=== PATIENT | male | born 1965 | race African-American/Black ===

== ENCOUNTER 2016-12-10 12:31 | Emergency (ER) | payer MEDICAID, MEDICARE, OTHER ==
[2016-12-10] MEDS ORDERED: ALBUTEROL SULFATE 0.083% NEB 2.5 MG/3 ML AMPUL NEB ONE (12:45)
[2016-12-10 13:41] LABS: ABSOLUTE EOSINOPHILS # (AUTO) 0.1 10^3/uL (0.0-0.6); ABSOLUTE LYMPHOCYTES (AUTO) 1.8 10^3/uL (0.5-4.7); ABSOLUTE MONOCYTES (AUTO) 0.8 10^3/uL (0.1-1.4); ABSOLUTE NEUT (AUTO) 5.5 10^3/uL (1.7-8.2); BASOPHILS % (AUTO) 0.2 % (0-2); EOSINOPHILS % (AUTO) 1.1 % (0-6); HEMATOCRIT 45.7 % (37.9-51.0); HEMOGLOBIN 15.7 g/dL (13.5-17.0); HGB HCT DIFFERENCE 1.4; LYMPHOCYTES % (AUTO) 21.5 % (13-45); MEAN CORPUSCULAR HGB CONC 34.5 g/dL (32.0-36.0); MEAN CORPUSCULAR VOLUME 90 fl (80-97); MONOCYTES % (AUTO) 9.9 % (3-13); RED BLOOD COUNT 5.09 10^6/uL (4.35-5.55); RED CELL DISTRIBUTION WIDTH 13.9 % (11.5-14.0); SEGMENTED NEUTROPHILS % (AUTO) 67.3 % (42-78); WHITE BLOOD COUNT 8.2 10^3/uL (4.0-10.5)
--- NOTE | 2016-12-10 13:57 | RADIOLOGY REPORT (SQ) ---
EXAM DESCRIPTION: CHEST SINGLE VIEW COMPLETED DATE/TIME: 12/10/2016 1:47 pm REASON FOR STUDY: sob COMPARISON: 11/26/2014 EXAM PARAMETERS: NUMBER OF VIEWS: One view. TECHNIQUE: Single frontal radiographic view of the chest acquired. RADIATION DOSE: NA LIMITATIONS: None. FINDINGS: LUNGS AND PLEURA: No opacities, masses or pneumothorax. No pleural effusion. MEDIASTINUM AND HILAR STRUCTURES: No masses. Contour normal. HEART AND VASCULAR STRUCTURES: Heart normal in size. Normal vasculature. BONES: No acute findings. HARDWARE: None in the chest. OTHER: No other significant finding. IMPRESSION: NO ACUTE RADIOGRAPHIC FINDING IN THE CHEST. TECHNICAL DOCUMENTATION: JOB ID: [id number]
[2016-12-10 14:02] LABS: ALANINE AMINOTRANSFERASE 46 U/L (21-72); ALBUMIN 4.5 g/dL (3.5-5.0); ALKALINE PHOSPHATASE 58 U/L (38-126); ANION GAP 13 (5-19); ASPARTATE AMINO TRANSFERASE 31 U/L (17-59); BILIRUBIN,DIRECT 0.4 mg/dL (0.0-0.4); BILIRUBIN,TOTAL 0.5 mg/dL (0.2-1.3); BLOOD UREA NITROGEN 13 mg/dL (7-20); CALCIUM 9.6 mg/dL (8.4-10.2); CARBON DIOXIDE 30 mmol/L (22-30); CHLORIDE 102 mmol/L (98-107); CREATINE KINASE 720 U/L (55-170); GLUCOSE 106 mg/dL (75-110); SODIUM 144.5 mmol/L (137-145); TOTAL PROTEIN 7.7 g/dL (6.3-8.2)
[2016-12-10 14:31] LABS: TROPONIN I < 0.012 ng/mL
--- NOTE | 2016-12-10 15:43 | RADIOLOGY REPORT (SQ) ---
EXAM DESCRIPTION: KUB/ABDOMEN (SINGLE VIEW) COMPLETED DATE/TIME: 12/10/2016 3:33 pm REASON FOR STUDY: feeling of something pushing on his stomach COMPARISON: None. NUMBER OF VIEWS: One view. TECHNIQUE: Supine radiographic image of the abdomen acquired. LIMITATIONS: None. FINDINGS: BOWEL GAS PATTERN: Normal bowel gas pattern. No dilated loops. CALCIFICATIONS: No suspicious calcifications. SOFT TISSUES: No gross mass or suggestion of organomegaly. HARDWARE: None in the abdomen. BONES: No acute fracture. No worrisome bone lesions. OTHER: No other significant finding. IMPRESSION: NO RADIOGRAPHIC EVIDENCE FOR ACUTE ABDOMINAL DISEASE. TECHNICAL DOCUMENTATION: JOB ID: [id number] [employer]- All Rights Reserved
--- NOTE | 2016-12-10 15:51 | ER Document Report ---
ED Respiratory Problem - General Chief Complaint: Respiratory Distress Stated Complaint: RESPIRTORY DISTRESS Time Seen by Provider: 12/10/16 12:41 Mode of Arrival: Medic Information source: Patient Notes: Pt is a 51 year old male with ALS who presents to the ER today for feeling short of breath, and states it feels like "somebody's holding their hand down on my stomach and it's keeping me from getting a good breath." pt is on treatment for ALS by his primary doctor Dr. Ley. Pt states his shortness of breath started last night. He also admits that he's been on antibiotics recently , amoxicillin for a sinus infection. He admits to coughing. He denies fever/ chills. He denies copd/asthma, wheezing. he states the sinus pressure and other symptoms have improved. TRAVEL OUTSIDE OF THE [place] IN LAST 30 DAYS: No - Related Data Allergies/Adverse Reactions: No Known Allergies Allergy (Unverified 12/10/16 14:45) Past Medical History - General Information source: Patient - Social History Smoking Status: Current Every Day Smoker Frequency of alcohol use: None Drug Abuse: None Family History: Reviewed & Not Pertinent Past Surgical History: Reports: Hx Orthopedic Surgery - left hand Review of Systems - Review of Systems Constitutional: No symptoms reported EENT: See HPI Cardiovascular: No symptoms reported Respiratory: See HPI Gastrointestinal: No symptoms reported Genitourinary: No symptoms reported Male Genitourinary: No symptoms reported Musculoskeletal: See HPI Skin: No symptoms reported Hematologic/Lymphatic: No symptoms reported Neurological/Psychological: No symptoms reported Physical Exam - Vital signs Vitals: Resp Pulse Ox 20 97 12/10/16 12:52 12/10/16 12:52 - Notes Notes: PHYSICAL EXAMINATION: GENERAL: in no acute distress. HEAD: Atraumatic, normocephalic. EYES: Pupils equal round and reactive to light, extraocular movements intact, sclera anicteric, conjunctiva are normal. ENT: ear canals without erythema or foreign body, TMs pearly james with good bony landmarks, nares patent, oropharynx clear without exudates. Moist mucous membranes. airway patent NECK: Normal range of motion, supple without lymphadenopathy LUNGS: CTAB and equal. No wheezes rales or rhonchi. HEART: Regular rate and rhythm without murmurs ABDOMEN: Soft, no tenderness. No guarding, no rebound EXTREMITIES: does not move extremities, confined to bed, atrophy of lower extremities, no pitting edema. No cyanosis. NEUROLOGICAL: Cranial nerves grossly intact. see extremities above PSYCH: Normal mood, normal affect. SKIN: Warm, Dry, normal turgor, no rashes or lesions noted Course - Re-evaluation Re-evalutation: 12/10/16 15:54 Lab work is unremarkable today including normal cardiac enzymes, EKG reveals a normal sinus rhythm without ischemia or abnormality. Chest x-ray reveals no abnormality an abdominal x-ray reveals normal bowel pattern. Patient feels better after breathing treatment here. I will send him home with albuterol inhaler. I do believe that this is likely just the progression of his disease, however his vital signs are all stable here, he came in and 100% on room air, respirations 20/min, has not needed any oxygen although we did placed on him for his own comfort. He states the oxygen did not actually help him at all. - Vital Signs Vital signs: Temp Pulse Resp BP Pulse Ox 98.0 F 22 H 122/92 H 99 12/10/16 12:58 12/10/16 16:01 12/10/16 16:01 12/10/16 16:01 - Laboratory Result Diagrams: 12/10/16 13:15 12/10/16 13:15 Laboratory results interpreted by me: 12/10/16 12/10/16 13:15 13:15 Creatinine 0.50 L Creatine Kinase 720 H CK-MB (CK-2) 14.80 H Discharge - Discharge Clinical Impression: ALS (amyotrophic lateral sclerosis), Shortness of breath Condition: Stable Disposition: HOME, SELF-CARE Additional Instructions: Return immediately for any new or worsening symptoms. Follow up with primary care provider, call tomorrow to make followup appointment. Referrals: OUSMANE LEY MD [Primary Care Provider] - Follow up as needed
[2016-12-10] MEDS ORDERED: ALBUTEROL SULFATE HFA (90 MCG/PUFF) 8 GM MDI (1 MDI/ER DISP) IH PRN (15:57)
[2016-12-10 16:25] VITALS: BP 122/92
== END 2016-12-10 16:49 | disposition home or self-care (01) ==
LOC: ER 12:31
DX: G12.21 Amyotrophic lateral sclerosis (principal); R06.02 Shortness of breath; F17.200 Nicotine dependence, unspecified, uncomplicated
CPT/HCPCS: 94640; 99285; 36415; 82553; 82550; 85025; 80053; 84484; 87804; 71010; 74000; A9270; J3490

== ENCOUNTER 2017-01-15 12:16 | Emergency (ER) | payer MEDICARE ==
[2017-01-15] MEDS ORDERED: IPRATROPIUM/ALBUTEROL 0.5-2.5 MG/3 ML AMPUL NEB ONE (12:50)
--- NOTE | 2017-01-15 13:41 | RADIOLOGY REPORT (SQ) ---
EXAM DESCRIPTION: CHEST PA/LAT COMPLETED DATE/TIME: 01/15/2017 1:26 pm REASON FOR STUDY: sob COMPARISON: 11/26/2014 EXAM PARAMETERS: NUMBER OF VIEWS: two views TECHNIQUE: Digital Frontal and Lateral radiographic views of the chest acquired. RADIATION DOSE: NA LIMITATIONS: none FINDINGS: LUNGS AND PLEURA: No opacities, masses or pneumothorax. No pleural effusion. MEDIASTINUM AND HILAR STRUCTURES: No masses or contour abnormalities. HEART AND VASCULAR STRUCTURES: Heart normal size. No evidence for failure. BONES: No acute findings. HARDWARE: None in the chest. OTHER: No other significant finding. IMPRESSION: NO SIGNIFICANT RADIOGRAPHIC FINDING IN THE CHEST. TECHNICAL DOCUMENTATION: JOB ID: [id number] [employer]- All Rights Reserved
[2017-01-15] MEDS ORDERED: ALBUTEROL SULFATE HFA (90 MCG/PUFF) 8 GM MDI (1 MDI/ER DISP) IH ONE (14:53)
[2017-01-15] MEDS ORDERED: DEXAMETHASONE 4 MG TABLET PO ONE (14:55)
--- NOTE | 2017-01-15 14:56 | ER Document Report ---
ED General - General Chief Complaint: Shortness Of Breath Stated Complaint: DIFFICULTY BREATHING Time Seen by Provider: 01/15/17 12:26 TRAVEL OUTSIDE OF THE [place] IN LAST 30 DAYS: No - Related Data Allergies/Adverse Reactions: No Known Allergies Allergy (Unverified 12/10/16 14:45) Past Medical History - Social History Smoking Status: Former Smoker Family History: Reviewed & Not Pertinent Patient has suicidal ideation: No Patient has homicidal ideation: No Renal/ Medical History: Denies: Hx Peritoneal Dialysis Past Surgical History: Reports: Hx Orthopedic Surgery - left hand Physical Exam - Vital signs Vitals: Temp Pulse Resp BP Pulse Ox 98.5 F 106 H 18 181/111 H 98 01/15/17 12:24 01/15/17 12:24 01/15/17 12:24 01/15/17 12:24 01/15/17 12:24 Course - Vital Signs Vital signs: Temp Pulse Resp BP Pulse Ox 98.5 F 106 H 18 181/111 H 98 01/15/17 12:24 01/15/17 12:24 01/15/17 12:24 01/15/17 12:24 01/15/17 12:24 Discharge - Discharge Clinical Impression: Postnasal drip Reactive airway disease Qualifiers: Asthma severity: mild Asthma complication type: uncomplicated Instructions: Reactive Airway Disease ([facility]) Additional Instructions: I do believe you have reactive airway disease causing her shortness of breath due to your underlying postnasal drip. We will treat the postnasal drip with antihistamine. He may also treat herself with the albuterol inhaler given here in the ER 2 puffs every 4 hours for shortness of breath. I would recommend also following up with your primary care physician for the mentioning of your urinary frequency. Return to the ER symptoms worsen. Prescriptions: Loratadine [Claritin] 10 mg PO DAILY #30 capsule Forms: Return to Work
[2017-01-15 15:22] VITALS: BP 122/87
== END 2017-01-15 15:22 | disposition home or self-care (01) ==
LOC: ER 12:16
DX: R09.82 Postnasal drip (principal); J45.998 Other asthma; Z87.891 Personal history of nicotine dependence
CPT/HCPCS: 94640; 99284; 71020; A9270 ×2; J3490; J7620